=== PATIENT | male | born 1985 | race Caucasian/White ===

== ENCOUNTER 2018-06-02 10:32 | Emergency (ER) | payer OTHER ==
[~2018-06-02] VITALS: Ht 177.8 cm; Wt 82.1 kg
== END 2018-06-02 14:42 | disposition home or self-care (01) ==
LOC: ER 10:32
DX: M75.82 Other shoulder lesions, left shoulder (principal)

== ENCOUNTER 2024-05-19 07:10 | Day surgery (SDC) | payer OTHER ==
[2024-05-19] MEDS ORDERED: DIPHENHYDRAMINE HCL 50 MG/ML VIAL 1ML IV ONE (09:30)
[2024-05-19] MEDS ORDERED: MIDAZOLAM HCL 2 MG/2 ML VIAL IV ONE (09:30)
[2024-05-19] MEDS ORDERED: fentaNYL CITRATE 50 MCG/ML AMPUL IV PUSH ONE (09:30)
== END 2024-05-19 10:40 | disposition home or self-care (01) ==
LOC: AMB-ENDOS 07:10
PROVIDERS: ATTEND Colon & Rectal Surgery
DX: D12.2 Benign neoplasm of ascending colon (principal); K63.5 Polyp of colon; K62.5 Hemorrhage of anus and rectum

== ENCOUNTER 2025-02-02 06:00 | Day surgery (SDC) | payer OTHER ==
[2025-02-02] MEDS ORDERED: MIDAZOLAM HCL 2 MG/2 ML VIAL IV ONE (08:15)
[2025-02-02] MEDS ORDERED: fentaNYL CITRATE 50 MCG/ML AMPUL IV PUSH ONE (08:15)
[2025-02-02] MEDS ORDERED: DIPHENHYDRAMINE HCL 50 MG/ML VIAL 1ML IV ONE (08:15)
== END 2025-02-02 09:45 | disposition home or self-care (01) ==
LOC: AMB-ENDOS 06:00
PROVIDERS: ATTEND Colon & Rectal Surgery
DX: D12.2 Benign neoplasm of ascending colon (principal); K63.5 Polyp of colon; Z86.0101 Personal history of adenomatous and serrated colon polyps